=== PATIENT | female | born 1990 | race Native Hawaiian/Other Pacific Islander ===

== ENCOUNTER 2021-02-27 03:21 | Emergency (ER) | payer OTHER ==
[~2021-02-27] VITALS: Ht 165.1 cm; Wt 97.5 kg
[2021-02-27] MEDS ORDERED: BUPR8SUB2 PO (03:36)
[2021-02-27 04:27] VITALS: BP 150/79; TEMP 98.6
== END 2021-02-27 04:32 | disposition home or self-care (01) ==
LOC: ED 03:21
DX: L02.411 Cutaneous abscess of right axilla (principal)
CPT/HCPCS: 96372; 99283; J0696; J1885